=== PATIENT | female | born 1975 | race Caucasian/White ===

== ENCOUNTER 2023-04-06 22:50 | Emergency (ER) | payer OTHER ==
[~2023-04-06] VITALS: Ht 165.1 cm; Wt 68.0 kg
[2023-04-06 23:24] VITALS: BP 110/68; TEMP 98.4; O2SAT 100
== END 2023-04-06 23:24 | disposition home or self-care (01) ==
LOC: ER 22:59
DX: S09.90XA Unspecified injury of head, initial encounter (principal); W22.8XXA Striking against or struck by other objects, initial encounter; Y93.89 Activity, other specified; Y92.89 Other specified places as the place of occurrence of the external cause; Y99.8 Other external cause status